=== PATIENT | male | born 2000 | race Caucasian/White ===

== ENCOUNTER 2023-04-17 04:16 | Emergency (ER) | payer OTHER ==
[2023-04-17] MEDS ORDERED: Lidocaine 1% (PF) 30 ML VIAL ONE (04:43)
[2023-04-17] MEDS ORDERED: Cephalexin 500 MG CAP ONE (05:43)
[2023-04-17] MEDS ORDERED: Ibuprofen 800 MG TAB ONE (05:43)
== END 2023-04-17 06:02 | disposition home or self-care (01) ==
LOC: MADERS 04:16
DX: S61.310A Laceration without foreign body of right index finger with damage to nail, initial encounter (principal); W20.8XXA Other cause of strike by thrown, projected or falling object, initial encounter; Y99.0 Civilian activity done for income or pay
CPT/HCPCS: 12001; J2001